=== PATIENT | female | born 1990 | race Caucasian/White ===

== ENCOUNTER 2018-03-22 09:30 | Day surgery (SDC) | payer OTHER, MEDICAID ==
[2018-03-15 11:17] LABS: BASOPHILS % (AUTO) 0.6 % (0-1); EOSINOPHILS # (AUTO) 0.2 X10'3 (0-0.9); EOSINOPHILS % (AUTO) 3.2 % (0-6); LYMPHOCYTES # (AUTO) 1.9 X10'3 (1.1-4.8); MEAN CORPUSCULAR HEMOGLOBIN 31.7 PG (27.0-31.0); MEAN CORPUSCULAR HGB CONC 35.1 % (33.0-36.5); MEAN CORPUSCULAR VOLUME 90.2 FL (78-98); MEAN PLATELET VOLUME 7.7 FL (7.4-10.4); MONOCYTES # (AUTO) 0.5 X10'3 (0-0.9); MONOCYTES % (AUTO) 7.6 % (2-12); NEUTROPHILS # (AUTO) 3.9 X10'3 (1.8-7.7); NEUTROPHILS % (AUTO) 59.6 % (42-75); PRE OP HEMOGLOBIN 14.8 g/dL (12.0-16.0); PRE OP PLATELET COUNT 270 X10'3 (140-440); RED BLOOD COUNT 4.65 X10'6 (4.20-5.60)
[2018-03-15 11:25] LABS: PRE OP PROTIME 10.1 SECONDS (9.0-12.0)
[2018-03-15 11:29] LABS: ALBUMIN 4.1 G/DL (3.4-5.0); ALBUMIN/GLOBULIN RATIO 1.1 (1.1-1.5); ALKALINE PHOSPHATASE 43 IU/L (46-116); BLOOD UREA NITROGEN 13 MG/DL (7-18); BUN/CREATININE RATIO 17.8 (6.6-38.0); CALCIUM 8.9 MG/DL (8.5-10.1); CHLORIDE 103 MMOL/L (99-107); CREATININE 0.73 MG/DL (0.40-0.90); PRE OP ALT 22 U/L (30-65); PRE OP ANION GAP 8 (8-16); PRE OP AST 17 U/L (10-37); PRE OP BILIRUB, TOTAL 0.7 MG/DL (0.0-1.0); PRE OP GLUCOSE 98 MG/DL (70-104); PRE OP POTASSIUM 3.9 MMOL/L (3.4-5.1); PRE OP SODIUM 141 MMOL/L (135-145); TOTAL CARBON DIOXIDE 29.8 MMOL/L (24-32); TOTAL PROTEIN 7.9 G/DL (6.4-8.2); eGFR > 90 ML/MIN
[~2018-03-22] VITALS: Ht 157.5 cm; Wt 76.7 kg
[2018-03-22] VITALS (17 sets, daily range): BP systolic 90–111; BP diastolic 48–72
[~2018-03-22 09:30] MED LIST: ESCI20TA PO; HYDR-3686 PO; ceFOXitin 2 GM ADDvantage bag 100 ML IV ONE; famotidine 20mg tablet PO ONE
[2018-03-22] MEDS: ringers solution, lacted 1,000 ML IV SCH ×3 (10:10→17:43)
[2018-03-22] MEDS ORDERED: clindamycin phosphate 40gm vag cream ONE (10:59)
[2018-03-22] MEDS ORDERED: BUPIVAcaine/PF 2.5mg/ml (0.25%) 10ml vial ONE (10:59)
[2018-03-22] MEDS ORDERED: epiNEPHrine 1 mg/ml inj ONE (10:59)
[2018-03-22] MEDS ORDERED: vasoPRESSIN 20 units/ml inj. ONE (11:00)
[2018-03-22] MEDS ORDERED: neomy sulf/polymyxin B sulf. GU irrigation 1ml amp IR ONE (11:05)
[2018-03-22] MEDS ORDERED: sevoflurane 250ml liquid IH ONE (12:27)
[2018-03-22] MEDS ORDERED: midazolam 2 mg/2 ml injection ONE (12:35)
[2018-03-22] MEDS ORDERED: fentaNYL /PF 50mcg/ml 5ml ampule ONE (12:35)
[2018-03-22] MEDS ORDERED: ringers solution, lacted 1,000 ML IV SCH (13:37)
[2018-03-22] MEDS ORDERED: ondansetron/PF 4mg/2ml inj IV PRN ×2 (13:40→14:20)
[2018-03-22] MEDS ORDERED: fentaNYL/PF 50MCG/1 ML 2ML syringe IV PRN ×2 (13:40)
[2018-03-22] MEDS ORDERED: meperidine/PF 25mg/ml syringe IV PRN (13:40)
[2018-03-22] MEDS ORDERED: rocuronium 10mg/ml inj IV ONE (14:05)
[2018-03-22] MEDS ORDERED: ondansetron/PF 4mg/2ml inj ONE (14:05)
[2018-03-22] MEDS ORDERED: propofol inj 20 ML IV ONE (14:05)
[2018-03-22] MEDS ORDERED: dexamethasone sod phosphate 4mg/ml inj. ONE (14:05)
[2018-03-22] MEDS ORDERED: LIDOcaine 2% (20mg/ml) 5ml vial ONE (14:05)
[2018-03-22] MEDS ORDERED: neostigmine methylsulfate 1 MG/ML 10ml vial ONE (14:05)
[2018-03-22] MEDS ORDERED: glycopyrrolate 0.2mg/ml inj ONE (14:05)
[2018-03-22] MEDS ORDERED: diphenhydrAMINE 50 mg/ml inj IV PRN (14:20)
[2018-03-22] MEDS ORDERED: metoclopramide 5 mg/ml inj IV PRN (14:20)
[2018-03-22] MEDS ORDERED: LORazepam 2 mg/ml vial IV PRN (14:20)
[2018-03-22] MEDS ORDERED: normal saline 500ml IV soln 500 ML IV PRN (14:20)
[2018-03-22] MEDS ORDERED: temazepam 15mg capsule PO PRN (14:20)
[2018-03-22] MEDS ORDERED: meperidine/PF 50mg/ml syringe ONE (14:24)
[2018-03-22] MEDS: meperidine/PF 25mg/ml syringe IV PRN ×4 (14:49→15:42)
[2018-03-22] MEDS ORDERED: HYDROcodone/acetaminophen 5mg/325mg tablet PO PRN (16:40)
[2018-03-22] MEDS: ketorolac trometh. 30mg/ml inj. IV PRN (19:53)
[2018-03-22] MEDS: simethicone 80mg chew tab PO SCH (19:55)
[2018-03-22] MEDS: docusate sod 100mg capsule PO SCH (19:55)
[2018-03-22] MEDS ORDERED: hydrOXYzine 25 MG tablet PO SCH (21:00)
[2018-03-22] MEDS: HYDROcodone/acetaminophen 5mg/325mg tablet PO PRN (22:46)
[2018-03-23] MEDS: HYDROcodone/acetaminophen 5mg/325mg tablet PO PRN (02:55)
[2018-03-23 05:10] LABS: BASOPHILS % (AUTO) 0.3 % (0-1); EOSINOPHILS % (AUTO) 0 % (0-6); HEMATOCRIT 35.3 % (35.0-45.0); LYMPHOCYTES # (AUTO) 2.2 X10'3 (1.1-4.8); LYMPHOCYTES % (AUTO) 16.8 % (21-51); MEAN CORPUSCULAR HGB CONC 33.9 % (33.0-36.5); MEAN CORPUSCULAR VOLUME 91.7 FL (78-98); MONOCYTES % (AUTO) 7.6 % (2-12); NEUTROPHILS # (AUTO) 9.7 X10'3 (1.8-7.7); NEUTROPHILS % (AUTO) 75.3 % (42-75); PLATELET COUNT 237 X10'3 (140-440); RED BLOOD COUNT 3.85 X10'6 (4.20-5.60); RED CELL DISTRIBUTION WIDTH 12.9 % (11.5-14.5); WHITE BLOOD COUNT 12.9 X10'3 (4.5-11.0)
[2018-03-23 05:55] LABS: ALBUMIN 3.2 G/DL (3.4-5.0); ANION GAP 9 (8-16); BLOOD UREA NITROGEN 5 MG/DL (7-18); BUN/CREATININE RATIO 9.4 (6.6-38.0); CALCIUM 8.3 MG/DL (8.5-10.1); CHLORIDE 104 MMOL/L (99-107); CREATININE 0.53 MG/DL (0.40-0.90); GLUCOSE 105 MG/DL (70-104); POTASSIUM 3.5 MMOL/L (3.5-5.1); SODIUM 138 MMOL/L (135-145); TOTAL CARBON DIOXIDE 24.8 MMOL/L (24-32); eGFR > 90 ML/MIN
[2018-03-23] MEDS: simethicone 80mg chew tab PO SCH ×2 (07:33→13:00)
[2018-03-23] MEDS: docusate sod 100mg capsule PO SCH (07:33)
[2018-03-23 08:00] VITALS: BP 86/52
[2018-03-23] MEDS ORDERED: citalopram 20mg tablet PO SCH (08:00)
[2018-03-23] MEDS ORDERED: enoxaparin 40mg/0.4ml syringe SQ SCH (08:00)
[2018-03-23] MEDS: ketorolac trometh. 30mg/ml inj. IV PRN (11:25)
[2018-03-23 12:00] VITALS: BP 89/49
== END 2018-03-23 14:33 | disposition home or self-care (01) ==
LOC: PAS 09:30 → SUR 3N 14:20 → PAS 03-23 14:33
PROVIDERS: ATTEND Obstetrics & Gynecology Obstetrics
DX: N73.6 Female pelvic peritoneal adhesions (postinfective) (principal); N80.0 Endometriosis of uterus; F41.8 Other specified anxiety disorders; G91.8 Other hydrocephalus; F32.9 Major depressive disorder, single episode, unspecified; Z98.51 Tubal ligation status; Z90.49 Acquired absence of other specified parts of digestive tract; Z79.1 Long term (current) use of non-steroidal anti-inflammatories (NSAID); Z79.891 Long term (current) use of opiate analgesic; Z88.5 Allergy status to narcotic agent; Z88.2 Allergy status to sulfonamides; Z90.89 Acquired absence of other organs; Z87.891 Personal history of nicotine dependence; Z88.8 Allergy status to other drugs, medicaments and biological substances; Z79.899 Other long term (current) drug therapy; Z98.890 Other specified postprocedural states
CPT/HCPCS: 36415; 58552; 71046; 80048; 80053; 85025; 85610; 85730; 86885; 86900; 86901; 93005; A4315; J0171; J0694; J1100; J1650; J1885; J2001; J2175; J2250; J2405; J2704; J2710; J3010; J3490; J7030; J7120; Q0177; A7000

== ENCOUNTER 2024-06-05 14:58 | Outpatient (CLI) | payer MEDICAID ==
[~2024-06-05 14:58] MED LIST changes: -ceFOXitin 2 GM ADDvantage bag 100 ML IV ONE; -famotidine 20mg tablet PO ONE
== END 2024-06-05 23:59 | disposition home or self-care (01) ==
LOC: RAD 14:58
PROVIDERS: ATTEND Family Medicine
DX: K22.0 Achalasia of cardia (principal)
CPT/HCPCS: 74220